=== PATIENT | male | born 1955 | race Caucasian/White ===

== ENCOUNTER 2017-11-08 16:50 | Emergency (ER) | payer MEDICARE, OTHER ==
[~2017-11-08] VITALS: Ht 180.3 cm; Wt 99.8 kg
--- NOTE | 2017-11-08 17:59 | Diagnostic Imaging Report ---
EXAMINATION: Head CT without contrast HISTORY: Status post fall, head trauma, pain COMPARISON: None. TECHNIQUE: Multidetector axial images were obtained without contrast from the foramen magnum to the vertex . The images were reconstructed using brain and bone algorithms. Thin section brain images were reformatted into coronal and sagittal planes. Image quality: Motion/streaking artifact limits the evaluation of the skull base and posterior cranial fossa. Dose modulation, iterative reconstruction, and/or weight based adjustment of the mA/kV was utilized to reduce the radiation dose to as low as reasonably achievable. FINDINGS: Parenchyma: 1. Periventricular and ray radiata white matter hypodensities mostly in the right greater than left frontal lobes. 2. No mass or hemorrhage. No CT evidence of acute territorial vascular insult. Extra-axial spaces:No abnormal density. No extra-axial fluid collections Brain volume: Sulci effacement due to enlarged ventricles. Ventricles: Moderate to severe enlargement of the third and lateral ventricles with transependymal CSF spread, there is poor visualization of the sylvian aqueduct and normal fourth ventricle. Soft tissue density tubular structures are seen in the region of the supravermian cistern and expected location of the vein of Gallen and straight sinus, with possible mass effect upon the superior sylvian aqueduct. Arteries: No density suggestive of thrombus. Dural sinuses: No abnormal density. Extra-axial spaces: No abnormal density. Foramen magnum: No mass, Chiari malformation, or basilar invagination. Sella: No obvious mass. Paranasal/mastoid sinuses: Imaged portions unremarkable. Skull/Scalp: No lytic or blastic lesions. No fractures. IMPRESSION: 1. 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 2. Dilated tubular structures in the supravermian region and vein of Gonzales, worrisome for vascular malformation, a head CTA is recommended for further evaluation. Signed by: Dr. Maribeth Bauman M.D. on 11/08/2017 5:56 PM
== END 2017-11-08 18:43 | disposition home or self-care (01) ==
LOC: ER 16:50
DX: S00.81XA Abrasion of other part of head, initial encounter (principal); W18.39XA Other fall on same level, initial encounter; Y92.128 Other place in nursing home as the place of occurrence of the external cause; I10 Essential (primary) hypertension; E11.9 Type 2 diabetes mellitus without complications; E03.9 Hypothyroidism, unspecified
CPT/HCPCS: 70450; 99283